=== PATIENT | female | born 1980 | race Two or more races ===

== ENCOUNTER 2024-07-30 21:39 | Emergency (ER) | payer OTHER ==
[~2024-07-30] VITALS: Ht 175.3 cm; Wt 119.0 kg
[2024-07-30 23:27] VITALS: BP 131/79; PULSE 89; RESP 18; TEMP 98.2; O2SAT 97
[2024-07-30] MEDS: SILVER SULFADIAZINE 1 % TOPICAL CREAM 50GM TOP ONE (23:27)
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
== END 2024-07-31 00:10 | disposition home or self-care (01) ==
LOC: ER 21:39
DX: T24.231A Burn of second degree of right lower leg, initial encounter (principal); X19.XXXA Contact with other heat and hot substances, initial encounter; Y93.89 Activity, other specified; Y92.89 Other specified places as the place of occurrence of the external cause; Y99.8 Other external cause status
CPT/HCPCS: 16000